=== PATIENT | male | born 2000 | race Caucasian/White ===

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

== ENCOUNTER 2019-02-25 09:11 | Inpatient (IN) ==
[2019-02-25] MEDS ORDERED: NITROGLYCERIN SL 0.4 MG/TAB TAB SL PRN (09:25)
[2019-02-25] MEDS ORDERED: ASPIRIN CHEW 324 MG PO STA (09:25)
[2019-02-25] MEDS ORDERED: ONDANSETRON INJ 2 MG/ML 2 ML VIAL IV STA (09:25)
[2019-02-25] MEDS ORDERED: SODIUM CHLORIDE 0.9% 1000ML 1,000 ML IV ONE (09:29)
[2019-02-25 09:42] LABS: Basophils # (auto) 0.01 K/uL (0-0.2); Basophils % (auto) 0.1 %; Eosinophils # (auto) 0.04 K/uL (0-0.5); Eosinophils % (auto) 0.3 %; Hematocrit (blood only) 44.3 % (42-52); Hemoglobin 16.3 g/dL (14.0-18.0); Immature Granulocytes # (auto) 0.03 K/uL (0.00-0.02); Immature Granulocytes % (auto) 0.2 %; Lymphocytes # (auto) 1.72 K/uL (1.2-3.4); Lymphocytes % (auto) 12.4 %; Mean Corpuscular Hemoglobin 29.7 pg (25-34); Mean Corpuscular Hgb Conc 36.8 g/dL (32-36); Mean Corpuscular Volume 80.8 fL (80-100); Mean Platelet Volume 8.9 fL (7.4-10.4); Monocytes # (auto) 1.59 K/uL (0.11-0.59); Monocytes % (auto) 11.5 %; Neutrophils # (auto) 10.48 K/uL (1.4-6.5); Neutrophils % (auto) 75.5 %; Platelet Count 169 K/uL (130-400); RDW Coefficient of Variation 12.6 % (11.5-14.5); RDW Standard Deviation 37.2 fL (36.4-46.3); Red Blood Count 5.48 M/uL (4.7-6.1); White Blood Count 13.87 K/uL (4.8-10.8)
[2019-02-25] MEDS ORDERED: MoRPHine SULFATE 10 MG/ML CARP/VIAL ONE (09:44)
[2019-02-25 09:45] LABS: iSTAT Ionized Calcium 1.06 mmol/l; iSTAT Potassium 3.7 mEq/L (3.3-5.0)
--- NOTE | 2019-02-25 09:51 | XRay Report ---
XR chest 1V portable CLINICAL HISTORY: 18 years-old Male presenting with Chest Pain. TECHNIQUE: Portable upright AP view of the chest was obtained. COMPARISON: None. FINDINGS: Cardiomediastinal silhouette normal. No focal opacity. No large effusion or pneumothorax. Osseous str uctures normal. Upper abdomen normal. IMPRESSION: 1. No acute cardiopulmonary disease. Electronically signed by: Simon Bello M.D. 02/25/2019 9:49 AM
[2019-02-25] MEDS ORDERED: MIDAZOLAM HCL 1 MG/ML 2ML VIAL ONE (09:52)
[2019-02-25] MEDS ORDERED: HEPARIN (PORCINE) 1000 UNIT/ML 10 ML (CATH LAB USE ONLY) ONE (09:52)
[2019-02-25] MEDS ORDERED: NiCARDipine HCL INJ 2.5 MG/ML 10 ML AMP ONE (09:52)
[2019-02-25] MEDS ORDERED: fentaNYL citrate 100 MCG/2 ML VIAL ONE (09:52)
[2019-02-25] MEDS ORDERED: NITROGLYCERIN/D5W 100MCG/ML 20ML SYR ONE (09:53)
[2019-02-25] MEDS ORDERED: MoRPHine SULFATE 2 MG/ML CARP IV PRN (09:58)
[2019-02-25] MEDS ORDERED: ASPIRIN 81 MG CHEW PO STA (09:58)
[2019-02-25 09:59] LABS: Albumin Level 3.7 gm/dl (3.4-5.0); BUN Creatinine Ratio 11.5 (10-20); Calcium 8.8 mg/dl (8.5-10.1); Est GFR (African American) 113.4; Est GFR (Non-African American) 97.9; Potassium 3.7 mmol/L (3.5-5.1)
[2019-02-25] MEDS ORDERED: SODIUM CHLORIDE 0.9% 1000ML 1,000 ML IV SCH ×2 (10:00→11:00)
[2019-02-25 10:07] LABS: Bilirubin,Total 0.9 mg/dl (0.2-1); Creatine Kinase MB 11.7 ng/ml (0.5-3.6); Globulin 3.6 gm/dl (2.5-4.0); Total Protein 7.3 gm/dl (6.4-8.2); Troponin I 2.81 ng/ml (0-0.045)
--- NOTE | 2019-02-25 10:07 | Pre Anesthesia Assessment ---
Date of Service February 25, 2019 Pre Sedation Assessment Vital Signs Temp Pulse Pulse Resp BP BP Pulse Ox 02/25/19 10:00 83 17 99/64 L 100 02/25/19 09:53 88 86 13 98/69 L 94 02/25/19 09:52 80 22 98/69 L 100 02/25/19 09:48 78 19 83/70 L 100 02/25/19 09:45 77 18 88/70 L 100 02/25/19 09:42 82 16 88/67 L 98 02/25/19 09:40 83 16 73/56 L 100 02/25/19 09:38 87 77 16 94/53 L 100 02/25/19 09:37 82 19 94/53 L 100 02/25/19 09:36 81 19 92/66 L 100 02/25/19 09:35 100 02/25/19 09:30 78 18 91/57 L 99 02/25/19 09:26 36.9 C 83 26 H 120/65 99 02/25/19 09:23 84 21 107/69 100 Notes The planned sedation has been discussed with the patient. Informed Consent was obtained. I have identified the patient, determined the appropriateness of sedation and have assessed the patient immediately prior to the procedure. All medicine(s) and interventions are by my order.
[2019-02-25] MEDS ORDERED: ONDANSETRON INJ 2 MG/ML 2 ML VIAL IV PRN (10:19)
[2019-02-25] MEDS ORDERED: ACETAMINOPHEN 325 MG TAB PO PRN (10:19)
--- NOTE | 2019-02-25 10:29 | History & Physical Report ---
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 Thacker performed cardiac cath Normal cardiac arteries - Follow am prp, cbc - CXR reviewed and clear (2) Alcohol abuse: - Drinking etoh since moving in on 02/15 - includes beer and hard liquor, unable to quantify because it differs every night but pt admits to drinking until getting severely intoxicated. Cessation encouraged. Also discussed preventing illness by not sharing drinks or food with others. - Discussed cessation of marijuana use - Denies other ilicit or IV drug use. - Continue MVI, folic acid and thiamine - Check urine drug tox screen Dispo: From home, likely to remain in the hospital x 1-2 days History of Present Illness Primary Care Provider: NO PCP This is a 18 yo M, currently attending [employer], without significant past medical history who presented with acute chest pain to the ER, was found to have abnormal EKG with diffuse ST wave changes and elevated troponin of 2.2 and was immediately taken to the cardiac warehouse general laborer. Pain is currently well controlled and he has no acute complaints. Pt notes he started feeling ill last Wednesday. He reports that this started with a sore throat which progressed to the point where he was having difficulty swallowing. He denies having a fever, cough, shortness of breath throughout. He sought out health services on campus Wednesday morning, where he was evaluated with a rapid strep swab which was negative. He was given ibuprofen and Tylenol and sent home. Patient had difficulty going to class on Wednesday due to not feeling well, yet participated in one class which he is required to attend. He continued to feel significantly ill yesterday. Last evening, patient went to bed early and woke up with a significant chest pain substernally radiating into his back. He had more pain with leaning forward. There were no alleviating factor s. He was also nauseous and vomited once this morning. He called an uber which brought him to the hospital. Of note the patient has consumed alcohol nearly daily since moving in on 02/15/19 to his dorm. He did not drink any alcohol on Wednesday or Wednesday. He also participates in smoking marijuana on a fairly routine basis, using a G-pen. The patient asked me "what is the healthiest way to smoke weed", and he was counseled on not smoking marijuana at all. Patient admits to smoking cigars intermittently, 1 every 2 months, however does not engage in routine tobacco cigarette use. He does not use any other illicit drugs. Allergies Allergy/AdvReac Type Severity Reaction Status Date / Time No Known Allergies Allergy Unverified 03/13/17 00:41 Home Medications Home Medications Medication Instructions Recorded Confirmed Type Multiple Vitamin (Multi Vitamin 1 tab PO DAILY #0 03/13/17 History Daily) Past Med/Surg History Medical History No pertinent past medical history Family History Other No pertinent family history in first degree relatives Social History Preferred Language: Lao Communication Ability: Effective Cable Installation Technician Required: No Beliefs That Will Affect Care: None Current Living Situation: Other Current Living Situation Comment: college student current occupational status: student Other Information That Helps Us Care for You: No Feels Safe at Home: Yes Safety Concerns: Feels Safe At This Time Smoking Status: Never smoker Do You Dip or Chew Tobacco: No ; Second Hand Exposure: No ; Tobacco Cessation Education Requested by Patient: No Hx Alcohol Use: Yes Alcohol type: beer Review of Systems Review of Systems: Constitutional: No fever, sweats or chills Eyes: No diplopia, no worsening or blurred vision ENT: normal hearing, no trouble swallowing Respiratory: No cough, sputum, dyspnea at rest or on exertion Cardiovascular: No chest pain, tightness or palpitations Abdomen: No pain, nausea, vomiting, diarrhea or constipation Musculoskeletal: No joint pain, calf pain, swelling Neurologic: No weakness, numbness/tingling, or balance problems Psychiatric: No anxiety or depression Skin: No rash or itch Physical Exam Physical Exam: General: awake, alert, no apparent distress Head: Normocephalic, atraumatic ENT: PERRL, EOMI, no pharyngeal exudate, mucous membranes moist Chest: Clear to auscultation, on room air, no adventitious breath sounds Cardiac: +tachycardic, reg rhythm, no murmur, no JVD, normal peripheral pulses, good capillary refill Abdominal: NABS x 4 quadrants, soft, nontender to palpation, no rebound, guarding or tenderness Extremities: + TR band in place R radial, otherwise normal inspection, no peripheral edema or erythema, calfs nontender to palpation Psych: Normal mood and affect Neuro: AAO x 3, strength intact bilaterally and related 5/5, no motor deficits, speech is clear, no peripheral sensory deficits Results & Data Vital Signs (Past 12 Hours) Vital Signs Temp Pulse Pulse Resp BP BP Pulse Ox 02/25/19 10:04 36.8 C 83 17 99/64 L 100 02/25/19 10:00 83 17 99/64 L 100 02/25/19 09:53 88 86 13 98/69 L 94 02/25/19 09:52 80 22 98/69 L 100 02/25/19 09:48 78 19 83/70 L 100 02/25/19 09:45 77 18 88/70 L 100 02/25/19 09:42 82 16 88/67 L 98 02/25/19 09:40 83 16 73/56 L 100 02/25/19 09:38 87 77 16 94/53 L 100 02/25/19 09:37 82 19 94/53 L 100 02/25/19 09:36 81 19 92/66 L 100 02/25/19 09:35 100 02/25/19 09:30 78 18 91/57 L 99 02/25/19 09:26 36.9 C 83 26 H 120/65 99 02/25/19 09:23 84 21 107/69 100 Diagnostic Findings XR chest 1V portable CLINICAL HISTORY: 18 years-old Male presenting with Chest Pain. TECHNIQUE: Portable upright AP view of the chest was obtained. COMPARISON: None. FINDINGS: Cardiomediastinal silhouette normal. No focal opacity. No large effusion or pneumothorax. Osseous structures normal. Upper abdomen normal. IMPRESSION: 1. No acute cardiopulmonary disease. Electronically signed by: Simon Bello M.D. 02/25/2019 9:49 AM Code Status & VTE Plan Code Status Full code Supervising Physician Co-Signing Physician Notes I agree with physical exam , treatment and plan . PG Care Time/CCT Total # of Minutes Spent Total Time Spent with Patient: Total time spent is greater than 50% in coordination of care (as documented) at patient's floor/unit and/or counseling patient:
--- NOTE | 2019-02-25 11:16 | Cardiac Catheterization ---
Cardiac Cath Procedure Full Procedure Date February 25, 2019 Pre-Procedure Diagnosis Pre-Procedure Diagnosis: STEMI AUC Score AUC Score: 9 Post-Procedure Diagnosis Post-Procedure Diagnosis: Normal Coronary Arteries Procedure(s) Performed Procedure(s) Performed: Coronary Angiography and LV Angiography Advertising Inserter Jermaine Thacker DO Estimated Blood Loss Estimated Blood Loss: None Summary of Findings Normal coronary arteries, mild LV systolic dysfunction, phylicia- pericarditis. Hemodynamics Rest Ao:: 100/60 Final Ao: 100/60 LV: 100/10 Recommendations Recommendations: Medical Therapy and/or Counseling (NSAID and colchicine, patient counselled to avoid alcohol and recreational drugs.) Radiation Exposure (mGy) Normal coronary arteries, mild LV systolic dysfunction, myopericarditis Contrast (mls) normal coronary arteries ACC Data: Systems Programmer Analyst Cardiac Status Chest pain, diffuse hyperacute ST-elevation without [place]-depression, positive Troponin, no clinical CHF, no rub in 18-yo no cocaine/methamphetamine, no FH, no overt risk factors for [place] CAD Presenation: STEMI Anginal Classification: CCS IV Heart Failure: No Cardiogenic Shock within 24 Hours: No Cardiac Arrest within 24 Hours: No Imaging Studies Past 6 Months: No Stress Studies Past 6 Months: No Cardiac CTA: No STEMI OR Non-STEMI Symptom Onset Date: 02/24/19 Symptom Onset Time: 08:00 Thrombolytics: No Coronary Anatomy Dominant: Left Left Main (% Stenosis): Normal LAD (% Stenosis): Normal D1 (% Stenosis): Normal Circumflex (% Stenosis): Normal OM1 (% Stenosis): Normal OM2 (% Stenosis): Normal L PL1 (% Stenosis): Normal L PL2 (% Stenosis): Normal RCA (% Stenosis): Normal R PDA (% Stenosis): Normal R PL1 (% Stenosis): Normal R PL2 (% Stenosis): Normal Left Ventricular Angiography EF (%): 45 Diagnostic Physicians Name: Jermaine Thacker DO Status: Emergency Closure Device Percutaneous Entry Location: Radial Closure Device: Radial Band Recommendations: Medical Therapy and/or Counseling (NSAID and colchicine, patient counselled to avoid alcohol and recreational drugs.) Supervising Physician Co-Signing Physician Damian thacker
--- NOTE | 2019-02-25 11:16 | Post Anesthesia Assessment ---
Date of Service February 25, 2019 Post Sedation Assessment Vital Signs Temp Pulse Pulse Resp BP BP Pulse Ox 02/25/19 10:04 36.8 C 83 17 99/64 L 100 02/25/19 10:00 83 17 99/64 L 100 02/25/19 09:53 88 86 13 98/69 L 94 02/25/19 09:52 80 22 98/69 L 100 02/25/19 09:48 78 19 83/70 L 100 02/25/19 09:45 77 18 88/70 L 100 02/25/19 09:42 82 16 88/67 L 98 02/25/19 09:40 83 16 73/56 L 100 02/25/19 09:38 87 77 16 94/53 L 100 02/25/19 09:37 82 19 94/53 L 100 02/25/19 09:36 81 19 92/66 L 100 02/25/19 09:35 100 02/25/19 09:30 78 18 91/57 L 99 02/25/19 09:26 36.9 C 83 26 H 120/65 99 02/25/19 09:23 84 21 107/69 100 Post Sedation Plan On clinical assessment, the patient appears to have tolerated the sedation without complications. Patient is recovering as anticipated. Patient will continue to be monitored by nursing and may be discharged when sedation discharge criteria are met per below protocol. Upon Completions of procedure and additional 15 minutes continue every 5 minute vital signs and the P.A.R. score; then discharge to a Phase I or Fast Track to Phase II per the following guidelines: * Discharge Patient to appropriate Phase II area if PAR is 8 or greater or return to pre- procedure baseline. The post - procedure orders will be as directed. * If PAR score is less than 8 or not return to pre-procedure baseline then patient will follow Phase I monitoring till PAR is reached for Phase II. The Phase I may be done in procedure room or may call to secure a Phase I area. * If naloxone or flumazenil are used for reversal, hold in Phase I for continued monitoring from when last reversal dose was given for a minimum of 60 minutes or longer pending the nurse and/or physician discretion of patient condition before discharge to Phase II. Please call the Sedation Physician to re-evaluate and complete post-note for discharge to Phase II area. Do NOT discharge from procedure sedation or Phase 1 until post- sedation evaluation note is complete by procedure /sedation MD Sedation Discharge Instructions to be given to the patient at discharge to home. Supervising Physician Co-Signing Physician Notes arronning
--- NOTE | 2019-02-25 11:17 | Cardiac Catheterization ---
Cardiac Cath Procedure Full Procedure Date February 25, 2019 Pre-Procedure Diagnosis Pre-Procedure Diagnosis: STEMI AUC Score AUC Score: 9 Post-Procedure Diagnosis Post-Procedure Diagnosis: Normal Coronary Arteries Procedure(s) Performed Procedure(s) Performed: Coronary Angiography and LV Angiography Vp Outcomes Jermaine Thacker DO Estimated Blood Loss Estimated Blood Loss: None Recommendations Recommendations: Medical Therapy and/or Counseling (NSAID and colchicine, patient counselled to avoid alcohol and recreational drugs.) ACC Data: Field Reporter Cardiac Status Clinical evaluation leading to the procedure Diagnostic Physicians Name: Jermaine Thacker DO Closure Device Recommendations: Medical Therapy and/or Counseling (NSAID and colchicine, patient counselled to avoid alcohol and recreational drugs.)
--- NOTE | 2019-02-25 11:48 | Cardiac Catheterization ---
Cardiac Cath Procedure Full Procedure Date February 25, 2019 Pre-Procedure Diagnosis Pre-Procedure Diagnosis: STEMI AUC Score AUC Score: 9 Post-Procedure Diagnosis Post-Procedure Diagnosis: Normal Coronary Arteries Procedure(s) Performed Procedure(s) Performed: Coronary Angiography and LV Angiography Superintendent Operating Jermaine Thacker DO Estimated Blood Loss Estimated Blood Loss: None Summary of Findings Normal coronary arteries, mild LV systolic dysfunction, phylicia- pericarditis. Hemodynamics Rest Ao:: 100/60 Final Ao: 100/60 LV: 100/10 Recommendations Recommendations: Medical Therapy and/or Counseling (NSAID and colchicine, patient counselled to avoid alcohol and recreational drugs.) ACC Data: Adult Education Professional Cardiac Status Clinical evaluation leading to the procedure CAD Presenation: STEMI Diagnostic Physicians Name: Jermaine Thacker DO Closure Device Recommendations: Medical Therapy and/or Counseling (NSAID and colchicine, patient counselled to avoid alcohol and recreational drugs.) Supervising Physician Co-Signing Physician Damian thacker
[2019-02-25] MEDS ORDERED: LORazepam 1 MG TAB PO PRN (12:22)
--- NOTE | 2019-02-25 12:26 | Operative Report ---
DATE OF OPERATION: 02/25/2019 INDICATION: Chest pain atypical of angina with a pleuritic component and a positional component in a 18-year-old male, onset 24-48 hours earlier, associated with hyperacute ST elevation without GA depression, positive troponin of 2 with no congestive heart failure in a 18-year-old with no history of tobacco abuse, who "smokes occasional weed," drinks alcohol, has no overt risk factors for coronary artery disease. PROCEDURE PERFORMED: Left heart cath, coronary cineangiography, left ventriculography, radiological interpretation and supervision. METHOD: Upon arrival in the [facility], the patient was prepped and draped in the usual sterile fashion and after local infiltration of 2% lidocaine, a 6-Malaysian sheath was placed in the right radial artery. Intra-arterial nicardipine, heparin and nitroglycerin were administered. The sheath was aspirated and flushed. A 5-Malaysian TIG 4.0 catheter was advanced over wire under fluoroscopic guidance to the central circulation where it was aspirated and flushed. After confirmation of adequate waveform, it was advanced into the left ventricle. Left ventricular end diastolic pressure was measured. The catheter was removed from left ventricle to the aorta under continuous pressure monitoring. Catheter was used to engage the origin of the left main. Cineangiograms of the left coronary artery obtained and reviewed. Catheter was used to engage the origin of the right coronary artery. Cineangiograms of the right coronary artery obtained and reviewed. Catheter was then used to exchange over wire for a 5-Malaysian angle tip pigtail which was used to cross the aortic valve in a retrograde fashion. Left ventriculography was performed using 36 mL of contrast dye over 3 seconds at less than 450 PSI. Catheter was removed from the left ventricle to the aorta and continuous pressure monitoring and removed from the body over wire. Sheath was aspirated and flushed. An external compression device was deployed over the right radial artery. The patient returned to his room in good condition. COMPLICATIONS: None. FINDINGS: Left main is normal. Left circumflex, circumflex marginal and posterolateral branches are free of significant disease. Left anterior descending artery and a large first diagonal branch are free of significant disease. There is a mid LAD intramyocardial segment with no systolic compression of the artery noted. The right coronary artery, the posterior descending artery, a large posterolateral branch with multiple sub branches are all free of significant disease. Left ventricular end diastolic pressure is normal. No significant aortic valve gradients demonstrated. Left ventriculography demonstrates top normal left ventricular size with mild LV systolic dysfunction, ejection fraction estimated at 45%. No discrete regional wall motion abnormality is identified. No apical ballooning is present. IMPRESSION AND PLAN: Normal coronary arteries, mild LV systolic dysfunction, presumed myopericarditis based upon EKG and symptoms. I attest to the content of the Intraoperative Record and any orders documented therein. Any exception s are noted below.
[2019-02-25] MEDS: IBUPROFEN 600 MG TAB PO SCH ×2 (12:28→19:29)
[2019-02-25] MEDS: COLCHICINE 0.6 MG TAB PO SCH ×2 (12:28→20:34)
--- NOTE | 2019-02-25 12:37 | Consultation Report ---
DATE OF CONSULTATION: 02/25/2019 CHIEF COMPLAINT: Chest pain. HISTORY OF PRESENT ILLNESS: This 18-year-old male reports onset 24-48 hours prior to presentation of anterior chest discomfort, diffuse, ill-defined, worse on inspiration and not necessarily worse on lying down or better on sitting up. Persistent over the course of hours, not associated with shortness of breath, associated with some degree of nausea, anorexia, no vomiting, no palpitations. The patient sought medical attention in the urgent care environment yesterday and was discharged. PAST MEDICAL HISTORY: Negative for hypertension, diabetes, hypercholesterolemia, atherosclerotic cardiovascular disease, prior myocardial infarction or stroke. PAST SURGICAL HISTORY: Unknown. OUTPATIENT MEDICATIONS: None. ALLERGIES: The patient reports no known drug allergies. FAMILY HISTORY: Negative for premature coronary artery disease, though "they are not very heart healthy." SOCIAL HISTORY: The patient does not smoke tobacco products. He smokes "weed" and drinks alcohol. Denies use of street drugs such as cocaine or methamphetamine. REVIEW SYSTEMS: The patient denies bleeding problems such as epistaxis, hemoptysis, hematemesis, hematuria, melena or hematochezia. He denies recent orthopnea or paroxysmal nocturnal dyspnea. Denies undue shortness of breath with limited physical exertion over the course of the last 48 hours. He notes recent cold, flu symptoms in the last 2 weeks. PHYSICAL EXAMINATION: VITAL SIGNS: Blood pressure is 140/70 in the Emergency Department, apical heart rate is 100 and regular, respiratory rate is 18-24. GENERAL: Intermittently, the patient is anxious, diaphoretic, in considerable chest pain on my arrival to the Emergency Department. HEENT: Mallampati score of 2 is noted. NECK: Jugular venous pressure is elevated with the patient supine. CARDIAC: Demonstrates a soft S4. No gallop or murmur is appreciated. No rub is elicited in supine or seated position leaning forward. LUNGS: Bilaterally clear to auscultation. Effort is good. No pleural pericardial and no pleural rub is noted. ABDOMEN: Soft, nontender with diminished bowel sounds present. EXTREMITIES: Well perfused. No pretibial edema. Normal right hand Wenceslao's test is noted. ELECTROCARDIOGRAM: Demonstrates sinus rhythm, normal axis, no Q waves with diffuse anterolateral ST elevation. No DE depression is noted. ST elevation is admittedly concave up and upsloping. LABORATORY VALUES: Include a troponin of 2.2 in the Emergency Department. Emergent cardiac catheterization demonstrates mild LV systolic dysfunction with normal coronary arteries, nonsignificant intramyocardial bridge of the LAD is noted. Chemistries, CBC including elevated white count with a neutrophilia are noted. IMPRESSION: Myocarditis, pericarditis, mild left ventricular systolic dysfunction. RECOMMENDATIONS: Colchicine 0.6 mg b.i.d. for 2 months, ibuprofen 600 mg b.i.d. for 7-10 days. GI protection with a proton pump inhibitor. ASAEL inhibitor for mild LV systolic dysfunction as blood pressure may tolerate, consider beta glenn if blood pressure and heart rate will tolerate tomorrow. Echocardiogram to evaluate for pericardial effusion. Catheterization findings, diagnosis, and plan for medical treatment are discussed with the patient and, at the direction of the patient, with the patient's father who is en route to the hospital.
[2019-02-25] MEDS: METOPROLOL TARTRATE 25 MG TAB PO SCH ×2 (12:56→20:34)
[2019-02-25] MEDS: PANTOprazole 40 MG TAB PO SCH (12:56)
[2019-02-25 19:28] LABS: Amphetamines+Metham, Urine Neg (Neg); Barbiturates, Urine Neg (Neg); Benzodiazepine, Urine Pos (Neg); Cocaine, Urine Neg (Neg); MDMA (Ecstacy), Urine Neg (Neg); Methadone, Urine Neg (Neg); Opiate, Urine Pos (Neg); Phencyclidine, Urine Neg (Neg)
[2019-02-25] MEDS ORDERED: ALUMINUM/MAGNESIUM SUSP 30 ML UDC PO PRN (21:35)
[2019-02-26] MEDS: IBUPROFEN 600 MG TAB PO SCH ×3 (03:39→19:41)
[2019-02-26 07:15] LABS: Hematocrit (blood only) 40.7 % (42-52); Hemoglobin 14.4 g/dL (14.0-18.0); Mean Corpuscular Hemoglobin 29.3 pg (25-34); Mean Corpuscular Hgb Conc 35.4 g/dL (32-36); Mean Corpuscular Volume 82.9 fL (80-100); Mean Platelet Volume 9.2 fL (7.4-10.4); Platelet Count 165 K/uL (130-400); RDW Standard Deviation 39.1 fL (36.4-46.3); Red Blood Count 4.91 M/uL (4.7-6.1); White Blood Count 8.66 K/uL (4.8-10.8)
[2019-02-26 07:26] LABS: INR 1.1 (0.9-1.1); Prothrombin Time 11.3 Seconds (9.0-12.0)
[2019-02-26 07:48] LABS: Albumin Level 2.8 gm/dl (3.4-5.0); BUN Creatinine Ratio 10.4 (10-20); Calcium 7.8 mg/dl (8.5-10.1); Est GFR (African American) 144.3; Est GFR (Non-African American) 124.5; Potassium 3.8 mmol/L (3.5-5.1)
[2019-02-26 07:52] LABS: Albumin Globulin Ratio 0.9 (0.9-2); Bilirubin,Total 0.4 mg/dl (0.2-1); Globulin 3.1 gm/dl (2.5-4.0); Total Protein 5.9 gm/dl (6.4-8.2)
[2019-02-26] MEDS: COLCHICINE 0.6 MG TAB PO SCH ×2 (08:43→20:31)
[2019-02-26] MEDS: THIAMINE HCL 100 MG TAB PO SCH (08:43)
[2019-02-26] MEDS: FOLIC ACID 400 MCG TAB PO SCH (08:43)
[2019-02-26] MEDS: CEROVITE ADV FORMULA TAB PO SCH (08:44)
[2019-02-26] MEDS: PANTOprazole 40 MG TAB PO SCH (08:45)
[2019-02-26] MEDS: LISINOPRIL 5 MG TAB PO SCH (10:26)
[2019-02-26] MEDS: METOPROLOL TARTRATE 25 MG TAB PO SCH ×2 (10:26→20:31)
--- NOTE | 2019-02-26 14:20 | Cardiology Progress Note ---
Date of Service February 26, 2019 Assessment & Plan (1) Acute myopericarditis: The patient was admitted with acute myopericarditis. Cardiac catheterization revealed normal coronary arteries and mild left ventricular dysfunction. LVEF on echocardiogram was reduced at 40%. Would continue ib uprofen and colchicine. (2) Elevated troponin: Troponin I level is still increasing. Would keep in hospital until the troponin begins to decrease. (3) Left ventricular dysfunction: Mild left ventricular dysfunction is related to his acute myopericarditis. Do not feel strongly that he requires metoprolol and lisinopril as this is likely from a viral etiology. Would suggest rechecking an echocardiogram in approximately 1 month. Subjective The patient is resting comfortably in bed without complaints of chest pain or dyspnea. Physical Exam Physical Exam: In general this is a well-developed well-nourished white male in no acute distress. HEENT exam is negative. Neck is supple with full carotid upstrokes. There are no carotid bruits. Jugular venous pressure is flat at 90. There is no thyromegaly. Cardiovascular exam reveals a regular rhythm with a normal S1 and S2. No S3, S4, or murmurs are noted. Lungs are clear without rales, rhonchi, or wheezes. Abdomen is soft and nontender without bruits. Extremities reveal intact radial artery and posterior tibial pulses bilaterally. There is no peripheral edema. Results & Data Vital Signs (Past 12 Hours) Vital Signs Temp Pulse Pulse Resp BP Pulse Ox 02/26/19 11:47 36.6 C 75 18 97/56 L 99 02/26/19 07:27 36.5 C 68 18 95/46 L 100 02/26/19 07:25 64 02/26/19 03:09 36.5 C 68 16 95/65 L 93 Laboratory Results Initial troponin level was 2.81 with follow-up values of 18.1, 20.3, and 25.3. Diagnostic Findings corset maker is benign. Echocardiogram noted mild left ventricular dysfunction with an ejection fraction of 40%. There is mild global hypokinesis. PG Care Time/CCT Total # of Minutes Spent Total Time Spent with Patient: Total time spent is greater than 50% in coordination of care (as documented) at patient's floor/unit and/or counseling patient:
--- NOTE | 2019-02-26 17:44 | Hospitalist Progress Note ---
Date of Service February 26, 2019 Assessment & Plan (1) Chest pain: Related to myopericarditis Improving (2) Alcohol abuse: Discussed risk of binge drinking particularly in the context of "holiday heart syndrome"discussed that myopericarditis is not in his case caused by the alcohol, but that in his recovery and any kind of excess alcohol could certainly worsen or stall improvement of his cardiomyopathy. He expressed good understanding. (3) Acute myopericarditis: Appears to be post viral, several cases in the area. Colchicine, ibuprofen, supportive care, trend troponins, follow rhythms. (4) Left ventricular dysfunction: Related to above. Consider continuing ASAEL inhibitor after discharge, follow closely. Anticipate total improvement. (5) DVT prophylaxis: Ambulation Subjective Generally feeling better. Chest pain improving. No other new complaints. Exp lained disease process to patient in detail, he expressed good understanding. Answered all questions from him and his father to the best my ability and to their satisfaction. No other new issues. Review of Systems Review of Systems: All systems reviewed & are unremarkable except as noted in HPI & below Physical Exam Physical Exam: In general he is awake alert pleasant no distress. HEENT normocephalic atraumatic mucous membranes moist. Breathing unlabored no accessory muscle use good effort. Skin shows no rashes no pallor or icterus. Neuro shows no focal deficits. Results & Data Vital Signs (Past 12 Hours) Vital Signs Temp Pulse Pulse Resp BP Pulse Ox 02/26/19 16:00 77 02/26/19 15:07 97.7 F 92 H 18 99/52 L 99 02/26/19 15:00 77 02/26/19 11:47 97.9 F 75 18 97/56 L 99 02/26/19 07:27 97.7 F 68 18 95/46 L 100 02/26/19 07:25 64 PG Care Time/CCT Total # of Minutes Spent Total Time Spent with Patient: Total time spent is greater than 50% in coordination of care (as documented) at patient's floor/unit and/or counseling patient: (1) Chest pain Chest pain type: unspecified Qualified Code(s): R07.9 - Chest pain, unspecified
[2019-02-27] MEDS: IBUPROFEN 600 MG TAB PO SCH ×2 (04:09→11:09)
[2019-02-27 05:39] LABS: INR 1.1 (0.9-1.1); Prothrombin Time 11.1 Seconds (9.0-12.0)
--- NOTE | 2019-02-27 06:21 | Emergency Department Note ---
Entered by Jermaine De La Cruz acting as a scribe for History of Present Illness General Chief complaint: Chest Pain Stated complaint: chest and back pain - fatigue Time Seen by Provider: 02/25/19 09:25 Source: patient History of Present Illness Provider complaint: Chest pain Onset (ago): hour(s) (This morning) Location: chest Radiation: back Pain Consistency: + constant Maximum Pain Intensity: 7 Current Pain Intensity: 7 Relieved By: + none Exacerbated By: + none Associated symptoms: + nausea/vomiting, + shortness of breath and + other (Positive sore throat) The patient is a 18 year old male who presents to the Emergency Room with complaints of constant left sided chest pain that started this morning. The patient rates the pain as a 7/10 and notes that it radiates to his back. The patient adds that he is somewhat short of breath and has been nauseous since waking up causing him to vomit once. The patient notes that nothing makes his pain better or worse, including taking deep breaths. The patient states that for the past 3 days he has not been feeling well with an upper respiratory infection and 2 days ago he developed a sore throat. For these symptoms he has been taking Ibuprofen, Tylenol, and OTC allergy medication. He adds that yesterday he went to urgent care for his symptoms and he states "they did nothing". The patient admits to drinking heavily all week, however he did not drink yesterday. The patient does smoke marijuana but denies any other drug use including cocaine and Adderall. The patient has no personal past medical history but he is unsure if he has any family medical history. Home Medications Home Medications Medication Instructions Recorded Confirmed Type Multiple Vitamin (Multi Vitamin 1 tab PO DAILY #0 03/13/17 History Daily) Allergies Allergy/AdvReac Type Severity Reaction Status Date / Time No Known Allergies Allergy Unverified 03/13/17 00:41 Past Med/Surg History Medical History No pertinent past medical history Family History Other No pertinent family history in first degree relatives Social History Preferred Language: Danish Communication Ability: Effective Business Area Director Required: No Beliefs That Will Affect Care: None Current Living Situation: Other Current Living Situation Comment: college student current occupational status: student Other Information That Helps Us Care for You: No Feels Safe at Home: Yes Safety Concerns: Feels Safe At This Time Smoking Status: Never smoker Do You Dip or Chew Tobacco: No ; Second Hand Exposure: No ; Tobacco Cessation Education Requested by Patient: No Hx Alcohol Use: Yes Alcohol type: beer Review of Systems See HPI for pertinent positives & negatives. and A total of 10 systems reviewed and were otherwise negative Physical Exam Vital Signs Vital Signs - 24 hr 02/25/19 09:23 02/25/19 09:26 02/25/19 09:30 Temperature 98.4 F Temperature Source Oral Sepsis Recent Fever Within 48 Hours No Sepsis New/Unexplained Change in Mental Status No Sepsis Action Taken by Nursing No Action Required Pulse Rate 84 83 78 Pulse Rate [Apical] Pulse Rate from SpO2 Sensor 82 85 79 Respiratory Rate 21 26 H 18 Respiratory Effort / Characteristics Respiratory Depth Respiratory Pattern Blood Pressure 107/69 120/65 91/57 L Blood Pressure [Left Arm] Blood Pressure Mean 81 83 68 Blood Pressure Mean [Left Arm] Blood Pressure Position [Left Arm] Pulse Oximetry 100 99 99 Oxygen Delivery Method Room Air Oxygen Flow Rate 02/25/19 09:35 02/25/19 09:36 02/25/19 09:37 Temperature Temperature Source Sepsis Recent Fever Within 48 Hours Sepsis New/Unexplained Change in Mental Status Sepsis Action Taken by Nursing Pulse Rate 81 82 Pulse Rate [Apical] Pulse Rate from SpO2 Sensor 77 83 Respiratory Rate 19 19 Respiratory Effort / Characteristics Respiratory Depth Respiratory Pattern Blood Pressure 92/66 L 94/53 L Blood Pressure [Left Arm] Blood Pressure Mean 74 66 Blood Pressure Mean [Left Arm] Blood Pressure Position [Left Arm] Pulse Oximetry 100 100 100 Oxygen Delivery Method Nasal Cannula Oxygen Flow Rate 2 02/25/19 09:38 02/25/19 09:40 02/25/19 09:42 Temperature Temperature Source Sepsis Recent Fever Within 48 Hours Sepsis New/Unexplained Change in Mental Status Sepsis Action Taken by Nursing Pulse Rate 87 83 82 Pulse Rate [Apical] 77 Pulse Rate from SpO2 Sensor 84 83 80 Respiratory Rate 16 16 16 Respiratory Effort / Characteristics Short of Breath Respiratory Depth Respiratory Pattern Blood Pressure 73/56 L 88/67 L Blood Pressure [Left Arm] 94/53 L Blood Pressure Mean 61 74 Blood Pressure Mean [Left Arm] 66 Blood Pressure Position [Left Arm] Lying Pulse Oximetry 100 100 98 Oxygen Delivery Method Nasal Cannula Oxygen Flow Rate 2 02/25/19 09:45 02/25/19 09:48 02/25/19 09:52 Temperature Temperature Source Sepsis Recent Fever Within 48 Hours Sepsis New/Unexplained Change in Mental Status Sepsis Action Taken by Nursing Pulse Rate 77 78 80 Pulse Rate [Apical] Pulse Rate from SpO2 Sensor 76 80 81 Respiratory Rate 18 19 22 Respiratory Effort / Characteristics Respiratory Depth Respiratory Pattern Blood Pressure 88/70 L 83/70 L 98/69 L Blood Pressure [Left Arm] Blood Pressure Mean 76 74 78 Blood Pressure Mean [Left Arm] Blood Pressure Position [Left Arm] Pulse Oximetry 100 100 100 Oxygen Delivery Method Oxygen Flow Rate 02/25/19 09:53 02/25/19 10:00 02/25/19 10:04 Temperature 98.2 F Temperature Source Oral Sepsis Recent Fever Within 48 Hours Sepsis New/Unexplained Change in Mental Status Sepsis Action Taken by Nursing Pulse Rate 88 83 83 Pulse Rate [Apical] 86 Pulse Rate from SpO2 Sensor 87 87 Respiratory Rate 13 17 17 Respiratory Effort / Characteristics Non-Labored Spontaneous Respiratory Depth Normal Respiratory Pattern Regular Blood Pressure 99/64 L 99/64 L Blood Pressure [Left Arm] 98/69 L Blood Pressure Mean 75 Blood Pressure Mean [Left Arm] 78 Blood Pressure Position [Left Arm] Lying Pulse Oximetry 94 100 100 Oxygen Delivery Method Nasal Cannula Nasal Cannula Oxygen Flow Rate 2 2 GENERAL: Awake, alert, well-appearing, in no distress HENT: Normocephalic, atraumatic. Oropharynx unremarkable. EYES: Normal conjunctiva. Sclera non-icteric. NECK: Supple. No nuchal rigidity. FROM. No masses. RESPIRATORY: Clear to auscultation. No wheezes. No rales. Normal respiratory effort. CARDIAC: Normal rate. Normal rhythm. No murmurs. No rubs. Extremities warm and well perfused. Pulses equal. No JVD. GI: Soft, non-distended. No tenderness to palpation. No rebound or guarding. No masses. RECTAL: Deferred. MUSCULOSKELETAL: Atraumatic. Chest examination reveals no tenderness. The back is symmetrical on inspection without obvious abnormality. There is no CVA tenderness to palpation. No joint edema. LOWER EXTREMITIES: Calves are equal size bilaterally and non-tender. No edema. No discoloration. NEURO: Normal sensorium. No sensory or motor deficits noted. Course 923: Past medical records reviewed. The patient was evaluated in room A04B, and a complete history and physical examination were performed. A heart alert was immediately called. 0940: I spoke to the patient's father to inform him of the situation regarding his son. 0949: I spoke to Dr. Kirstie Nunez at the patient's bedside. He is going to bring the patient over to the aquatic laborer. 0953: Upon reevaluation, the patient's pain is now a 3/10 after receiving morphine. 1013: I spoke to Kathrinkm Zaragoza [facility] PAC under Dr. Winslow [facility] Hospitalist about the patient's case. They are going to accept the patient for further evaluation. Consultations Consultation #1: I spoke to Dr. Kirstie Nunez at the patient's bedside. He is going to bring the patient over to the aquatic laborer. Time: 09:49 Consultation #2: I spoke to Kathrinmk Andrewlina [facility] PAC under Dr. Winslow [facility] Hospitalist about the patient's case. They are going to accept the patient for further evaluation. Time: 10:13 Administered Medications Al Hydrox/Mg Hydrox/Simethicone (Maalox) 30 ml PO Q6H PRN PRN Reason: Indigestion Stop: 03/27/19 21:34 Last Admin: 02/25/19 21:55 Dose: 30 ml Documented by: [id number] Colchicine (Colcrys) 0.6 mg PO BID REPLACED BY [facility] Stop: 03/27/19 10:59 Last Admin: 02/26/19 20:31 Dose: 0.6 mg Documented by: [id number] Admin: 02/26/19 08:43 Dose: 0.6 mg Documented by: [id number] Admin: 02/25/19 20:34 Dose: 0.6 mg Documented by: [id number] Admin: 02/25/19 12:28 Dose: 0.6 mg Documented by: [id number] Folic Acid (Folvite) 400 mcg PO QAM REPLACED BY [facility] Stop: 03/28/19 08:59 Last Admin: 02/26/19 08:43 Dose: 400 mcg Documented by: [id number] Ibuprofen (Motrin) 600 mg PO Q8H REPLACED BY [facility] Stop: 03/27/19 11:29 Last Admin: 02/27/19 04:09 Dose: 600 mg Documented by: [id number] Admin: 02/26/19 19:41 Dose: 600 mg Documented by: [id number] Admin: 02/26/19 12:08 Dose: 600 mg Documented by: [id number] Admin: 02/26/19 03:39 Dose: 600 mg Documented by: [id number] Admin: 02/25/19 19:29 Dose: 600 mg Documented by: [id number] Admin: 02/25/19 12:28 Dose: 600 mg Documented by: [id number] Lisinopril (Zestril) 5 mg PO QAM REPLACED BY [facility] Stop: 03/28/19 08:59 Last Admin: 02/26/19 10:26 Dose: Not Given Documented by: [id number] Metoprolol Tartrate (Lopressor) 25 mg PO BID REPLACED BY [facility] Stop: 03/27/19 12:15 Last Admin: 02/26/19 20:31 Dose: 25 mg Documented by: [id number] Admin: 02/26/19 10:26 Dose: Not Given Documented by: [id number] Admin: 02/25/19 20:34 Dose: 25 mg Documented by: [id number] Admin: 02/25/19 12:56 Dose: 25 mg Documented by: [id number] Multivitamins/Minerals (Multivitamin W/ Minerals Tab) 1 tab PO DAILY REPLACED BY [facility] Stop: 03/28/19 08:59 Last Admin: 02/26/19 08:44 Dose: 1 tab Documented by: [id number] Pantoprazole Sodium (Protonix) [facility] Stop: 03/27/19 11:44 Last Admin: 02/26/19 08:45 Dose: 40 mg Documented by: [id number] Admin: 02/25/19 12:56 Dose: 40 mg Documented by: [id number] Thiamine HCl (Vitamin B-1) 100 mg PO QAM REPLACED BY [facility] Stop: 03/28/19 08:59 Last Admin: 02/26/19 08:43 Dose: 100 mg Documented by: [id number] Discontinued Medications Aspirin (Aspirin) 324 mg PO NOW STA Stop: 02/25/19 09:26 Last Admin: 02/25/19 09:33 Dose: 324 mg Documented by: [id number] Fentanyl Citrate (Fentanyl Citrate) Confirm Administered Dose 100 mcg .ROUTE .STK-MED ONE Stop: 02/25/19 09:53 Last Increment: 02/25/19 10:44 Dose: 50 mcg Documented by: [id number] Heparin Sodium (Porcine) (Heparin Iv Bolus (Manager Business Continuity Use Only)) Confirm Administered Dose 10,000 units .ROUTE .STK-MED ONE Stop: 02/25/19 09:53 Last Admin: 02/25/19 10:45 Dose: 2,000 units Documented by: [id number] Heparin Sodium/Sodium Chloride (Heparin/Nss 1000 Unit/500ml Flush Bag) Confirm Administered Dose 3,000 units IV .STK-MED ONE Stop: 02/25/19 09:53 Last Admin: 02/25/19 10:45 Dose: 3,000 units Documented by: [id number] Sodium Chloride (Nss 1000ml) 1,000 mls @ 999 mls/hr IV .Q1H1M ONE Stop: 02/25/19 10:29 Last Infusion: 02/25/19 13:08 Dose: 0 mls/hr Documented by: [id number] Admin: 02/25/19 09:30 Dose: 999 mls/hr Documented by: [id number] Sodium Chloride (Nss 1000ml) 1,000 mls @ 100 mls/hr IV .Q10H POLO Stop: 02/25/19 16:59 Last Infusion: 02/25/19 21:06 Dose: 0 mls/hr Documented by: [id number] Admin: 02/25/19 11:00 Dose: 100 mls/hr Documented by: [id number] Midazolam HCl (Versed) Confirm Administered Dose 2 mg .ROUTE .STK-MED ONE Stop: 02/25/19 09:53 Last Admin: 02/25/19 10:45 Dose: 2 mg Documented by: [id number] Morphine Sulfate (Morphine Sulfate) Confirm Administered Dose 10 mg .ROUTE .STK- MED ONE Stop: 02/25/19 09:45 Last Admin: 02/25/19 09:47 Dose: 10 mg Documented by: [id number] Nicardipine HCl (Cardene) Confirm Administered Dose 25 mg .ROUTE .STK-MED ONE Stop: 02/25/19 09:53 Last Admin: 02/25/19 10:44 Dose: 25 mg Documented by: [id number] Nitroglycerin/Dextrose (Nitroglycerin/D5w 100 Mcg/Ml 20ml Syringe) Confirm Administered Dose 2,000 mcg .ROUTE .STK-MED ONE Stop: 02/25/19 09:54 Last Admin: 02/25/19 12:27 Dose: Not Given Documented by: [id number] Ondansetron HCl (Zofran) 4 mg IV NOW STA Stop: 02/25/19 09:26 Last Admin: 02/25/19 09:33 Dose: 4 mg Documented by: [id number] Medical Decision Making Differential Diagnosis Differential diagnoses includes but is not limited to acute coronary syndrome, myocardial infarction, pericarditis, pulmonary embolus, aortic dissection, pneumonia, pneumothorax, musculoskeletal, shingles, esophageal. Medical Records Attestation: I reviewed the patient's medical records. Home Medications Current Medication List: was personally reviewed by me Laboratory Data Attestation: I reviewed the patient's lab results. Result diagrams: 02/26/19 06:48 02/26/19 06:48 Lab Results 02/25/19 02/25/19 02/25/19 Range/Units 09:25 09:25 09:32 WBC 13.87 H (4.8-10.8) K/uL RBC 5.48 (4.7-6.1) M/uL Hgb 16.3 (14.0-18.0) g/dL POC Hgb (14.0-18.0) g/dl Hct 44.3 (42-52) % POC Hct (42-52) % MCV 80.8 (80-100) fL MCH 29.7 (25-34) pg MCHC 36.8 H (32-36) g/dL RDW Std Deviation 37.2 (36.4-46.3) fL RDW Coeff of Ra 12.6 (11.5-14.5) % Plt Count 169 (130-400) K/uL MPV 8.9 (7.4-10.4) fL Immature Gran % (Auto) 0.2 % Neut % (Auto) 75.5 % Lymph % (Auto) 12.4 % Forrest % (Auto) 11.5 % Eos % (Auto) 0.3 % Baso % (Auto) 0.1 % Immature Gran # (Auto) 0.03 H (0.00-0.02) K/uL Neut # (Auto) 10.48 H (1.4-6.5) K/uL Lymph # (Auto) 1.72 (1.2-3.4) K/uL Forrest # (Auto) 1.59 H (0.11-0.59) K/uL Eos # (Auto) 0.04 (0-0.5) K/uL Baso # (Auto) 0.01 (0-0.2) K/uL POC Sodium (135-144) mEq/L Sodium 137 (136-145) mmol/L POC Potassium (3.3-5.0) mEq/L Potassium 3.7 (3.5-5.1) mmol/L POC Chloride (101-112) mEq/L Chloride 103 (98-107) mmol/L Carbon Dioxide 25 (21-32) mmol/L POC Total CO2 (24-31) mEq/l Anion Gap 9.0 (3-11) POC Anion Gap (16-25) mmol/L POC BUN (7-18) mg/dl BUN 13 (7-18) mg/dl Creatinine 1.09 (0.6-1.4) mg/dl POC Creatinine mg/dl Est Cr Clr Drug Dosing 109.0 ml/min Est GFR ( Amer) 113.4 Est GFR (Non-Af Amer) 97.9 BUN/Creatinine Ratio 11.5 (10-20) Glucose 161 H (70-99) mg/dl POC Glucose (other) (70-99) mg/dl Calcium 8.8 (8.5-10.1) mg/dl POC Ioniz Calcium Kevin mmol/l Total Bilirubin 0.9 (0.2-1) mg/dl AST 25 (15-37) U/L ALT 23 (12-78) U/L Alkaline Phosphatase 89 (45-117) U/L Total Creatine Kinase 246 (39-308) U/L CK-MB (CK-2) 11.7 H (0.5-3.6) ng/ml CK/CKMB % Calc 4.8 H (0-3.0) POC Troponin I 2.27 H (0-0.045) ng/ml Troponin I 2.810 H* (0-0.045) ng/ml Total Protein 7.3 (6.4-8.2) gm/dl Albumin 3.7 (3.4-5.0) gm/dl Globulin 3.6 (2.5-4.0) gm/dl Albumin/Globulin Ratio 1.0 (0.9-2) Lipase 106 (73-393) U/L 02/25/19 Range/Units 09:33 WBC (4.8-10.8) K/uL RBC (4.7-6.1) M/uL Hgb (14.0-18.0) g/dL POC Hgb 16.0 (14.0-18.0) g/dl Hct (42-52) % POC Hct 47 (42-52) % MCV (80-100) fL MCH (25-34) pg MCHC (32-36) g/dL RDW Std Deviation (36.4-46.3) fL RDW Coeff of Ra (11.5-14.5) % Plt Count (130-400) K/uL MPV (7.4-10.4) fL Immature Gran % (Auto) % Neut % (Auto) % Lymph % (Auto) % Forrest % (Auto) % Eos % (Auto) % Baso % (Auto) % Immature Gran # (Auto) (0.00-0.02) K/uL Neut # (Auto) (1.4-6.5) K/uL Lymph # (Auto) (1.2-3.4) K/uL Forrest # (Auto) (0.11-0.59) K/uL Eos # (Auto) (0-0.5) K/uL Baso # (Auto) (0-0.2) K/uL POC Sodium 137 (135-144) mEq/L Sodium (136-145) mmol/L POC Potassium 3.7 (3.3-5.0) mEq/L Potassium (3.5-5.1) mmol/L POC Chloride 99 L (101-112) mEq/L Chloride (98-107) mmol/L Carbon Dioxide (21-32) mmol/L POC Total CO2 24 (24-31) mEq/l Anion Gap (3-11) POC Anion Gap 19.0 (16-25) mmol/L POC BUN 12 (7-18) mg/dl BUN (7-18) mg/dl Creatinine (0.6-1.4) mg/dl POC Creatinine 1.0 mg/dl Est Cr Clr Drug Dosing ml/min Est GFR ( Amer) Est GFR (Non-Af Amer) BUN/Creatinine Ratio (10-20) Glucose (70-99) mg/dl POC Glucose (other) 162 H (70-99) mg/dl Calcium (8.5-10.1) mg/dl POC Ioniz Calcium Kevin 1.06 mmol/l Total Bilirubin (0.2-1) mg/dl AST (15-37) U/L ALT (12-78) U/L Alkaline Phosphatase (45-117) U/L Total Creatine Kinase (39-308) U/L CK-MB (CK-2) (0.5-3.6) ng/ml CK/CKMB % Calc (0-3.0) POC Troponin I (0-0.045) ng/ml Troponin I (0-0.045) ng/ml Total Protein (6.4-8.2) gm/dl Albumin (3.4-5.0) gm/dl Globulin (2.5-4.0) gm/dl Albumin/Globulin Ratio (0.9-2) Lipase (73-393) U/L Imaging Data Radiologist's Impression: Radiology results as stated below per my review and the radiologist's interpretation: XR chest 1V portable CLINICAL HISTORY: 18 years-old Male presenting with Chest Pain. TECHNIQUE: Portable upright AP view of the chest was obtained. COMPARISON: None. FINDINGS: Cardiomediastinal silhouette normal. No focal opacity. No large effusion or pneumothorax. Osseous structures normal. Upper abdomen normal. IMPRESSION: 1. No acute cardiopulmonary disease. Electronically signed by: Simon Bello M.D. 02/25/2019 9:49 AM ECG Data Attestation: I personally reviewed and interpreted this ECG as follows: Indication: chest pain Rate (beats per minute): 97 Rhythm: normal sinus Findings: + ST depression (Reciprocal, anteriorly ) and + ST elevation (Inferior) Blood Pressure Blood Pressure Findings: Low blood pressure Blood Pressure Disposition: further management by hospitalist [facility] Narrative This is a 18-year-old male who presents emergency department with chest pain after 2 days of upper respiratory infection. The patient has also been heavily drinking and vomited this morning. The patient's EKG is abnormal because of this a heart alert was initiated. He was given aspirin here in the emergency department. The patient remained hypotensive therefore was given a normal saline bolus as well as morphine. His troponin was found to be grossly elevated. I did discuss the case with the interventionalist on-call who decided to bring the patient to the Manager Business Continuity. I also discussed the patient independently with both the patient's father and mother with the patient at the bedside. Family was in agreement with the treatment plan. Impression & Plan Chest pain, Elevated troponin Critical Care Time Critical Care Time: Yes Total Critical Care Time: 30 I have personally spent greater than 30 minutes of critical care time in the direct management of this patient. This includes bedside care, interpretation of diagnostic studies, and testing, discussion with consultants, patient, and family members, and other required patient management activities. This 30 minutes is in excess of all separately billable procedures. Discharge Plan Visit Data *Final* Discharge Date/Time: 02/25/19 10:06 Chief Complaint: Chest Pain Stated Complaint: chest and back pain - fatigue ED Provider: En Nieto Discharge Problem: Chest pain, Elevated troponin Patient Disposition: Admitted As Inpatient Discharge Instructions Interventions: ED Discharge Assessment Last Done: 02/25/19 10:04 Discharge Problem: Chest pain Qualifiers: Chest pain type: unspecified Qualified Code(s): R07.9 - Chest pain, unspecified The scribe's documentation has been prepared under my direction and personally reviewed by me in its entirety. I confirm that the note above accurately reflects all work, treatment, procedures, and medical decision making performed by me.
[2019-02-27 06:54] LABS: Estimated Average Glucose 103 mg/dl; Hemoglobin A1C 5.2 % (4.5-5.6)
[2019-02-27] MEDS: PANTOprazole 40 MG TAB PO SCH (08:53)
[2019-02-27] MEDS: CEROVITE ADV FORMULA TAB PO SCH (08:53)
[2019-02-27] MEDS: METOPROLOL TARTRATE 25 MG TAB PO SCH (08:53)
[2019-02-27] MEDS: COLCHICINE 0.6 MG TAB PO SCH (08:53)
[2019-02-27] MEDS: LISINOPRIL 5 MG TAB PO SCH (08:54)
[2019-02-27] MEDS: THIAMINE HCL 100 MG TAB PO SCH (08:54)
[2019-02-27] MEDS: FOLIC ACID 400 MCG TAB PO SCH (08:54)
--- NOTE | 2019-02-27 12:45 | Discharge Summary ---
Date of Service February 27, 2019 Admission HPI Per Admitting Provider This is a 18 yo M, currently attending [employer], without significant past medical history who presented with acute chest pain to the ER, was found to have abnormal EKG with diffuse ST wave changes and elevated troponin of 2.2 and was immediately taken to the cardiac crime lab technician. Pain is currently well controlled and he has no acute complaints. Pt notes he started feeling ill last Wednesday. He reports that this started with a sore throat which progressed to the point where he was having difficulty swallowing. He denies having a fever, cough, shortness of breath throughout. He sought out health services on campus Wednesday morning, where he was evaluated with a rapid strep swab which was negative. He was given ibuprofen and Tylenol and sent home. Patient had difficulty going to class on Wednesday due to not feeli ng well, yet participated in one class which he is required to attend. He continued to feel significantly ill yesterday. Last evening, patient went to bed early and woke up with a significant chest pain substernally radiating into his back. He had more pain with leaning forward. There were no alleviating factors. He was also nauseous and vomited once this morning. He called an uber which brought him to the hospital. Of note the patient has consumed alcohol nearly daily since moving in on 02/15/19 to his dorm. He did not drink any alcohol on Wednesday or Wednesday. He also participates in smoking marijuana on a fairly routine basis, using a G-pen. The patient asked me "what is the healthiest way to smoke weed", and he was counseled on not smoking marijuana at all. Patient admits to smoking cigars intermittently, 1 every 2 months, however does not engage in routine tobacco cigarette use. He does not use any other illicit drugs. Admission Exam Per Admitting Provider General: awake, alert, no apparent distress Head: Normocephalic, atraumatic ENT: PERRL, EOMI, no pharyngeal exudate, mucous membranes moist Chest: Clear to auscultation, on room air, no adventitious breath sounds Cardiac: +tachycardic, reg rhythm, no murmur, no JVD, normal peripheral pulses, good capillary refill Abdominal: NABS x 4 quadrants, soft, nontender to palpation, no rebound, guarding or tenderness Extremities: + TR band in place R radial, otherwise normal inspection, no peripheral edema or erythema, calfs nontender to palpation Psych: Normal mood and affect Neuro: AAO x 3, strength intact bilaterally and related 5/5, no motor deficits, speech is clear, no peripheral sensory deficits Principal Diagnosis Pericarditis and Myocarditis Discharge Exam Constitutional WD/WN, vitals as above Respiratory normal respiratory effort, lungs clear to auscultation Cardiovascular RRR, no murmur, no edema Heart Sounds: no cardiac rub Gastrointestinal (Abdomen) normal bowel sounds, soft, nontender, no hepatosplenomegaly Skin no rashes, warm and dry Psychiatric A+Ox3, euthymic affect Discharge Data Allergies Allergy/AdvReac Type Severity Reaction Status Date / Time No Known Allergies Allergy Unverified 03/13/17 00:41 Consultations 02/25/19 10:19 Consult Cardiology Routine ED Decision to Admit Routine 02/25/19 10:21 Consult Cardiology Routine Consult Case Management - Discharge Planning Routine 02/25/19 10:47 Consult Internal Medicine Routine 02/25/19 10:56 Consult Case Management - Discharge Planning Routine Procedures Performed Operation Date: 02/25/19 09:00 Actual Procedures p Cineradiography w/Routine Exam - Avel Urrutia MD s Cath, Left with Cors and Vent - Avel Urrutia MD Ordered Studies 02/25/19 09:57 CL Cath Imgs for PACS use only Stat Hospital Course (1) Acute myopericarditis: 18 yo M with history of alcohol and marijuana consumption who presented with chest pain, found to have myopericarditis. Acute myopericarditis - Initially troponins continued to elevate to max of 25.2, downtrending today to 11.3 and pt is without chest pain. - Has been treated inpatient with colchicine, lisinopril, ibuprofen which we will continue outpatient (colchicine three months, ibuprofen PRN pain, lisinopril until EF returns to normal on follow up Echo). Have discontinued metoprolol. - Will follow up with me in the clinic at [facility] within a week for hospital follow up. - Has prescription for Echo from Dr. Blankenship. Chest pain/Elevated troponin - See acute myopericarditis Alcohol use / marijuana use - Discussed that the use of alcohol and marijuana did not likely cause his illness given that the most common cause is viral, however both of these substances can make it worse and make slower his return to normal function. Have advised him to discontinue both for the foreseeable future, at least until his EF is better. Pt verbalized understanding. Left ventricular dysfunction -Have continued ASAEL lisinopril 5mg daily at this time, and will order BMP when I see him for outpatient follow up. Dispo: Home with self-care (2) Alcohol abuse: (3) Chest pain: (4) Elevated troponin: (5) Left ventricular dysfunction: Total Time Total Time Spent Total Time Spent (In Minutes): Less than 30 minutes Discharge Plan Discharge Items Patient Disposition: Home - Self-Care Reason For Visit: chest and back pain - fatigue Discharge Diagnosis: Inflammation of the Heart Discharge Goals: Decrease discomfort, Improve disease control, Learn about illness and Prevent disease Activity: Per 'Additional Instructions' section Non-emergency contact: Primary Care Provider Call non-emergency contact if: your symptoms worsen, your pain is worsening and your temperature is above 100.5 Follow-up/Referrals: Abril Bray DO [Resident] - PCP,RAFAEL [Primary Care Provider] - Diet: Regular Addtl Provider Instructions: You were admitted for chest and back pain and found to have pericarditis and myocarditis, inflammation of the heart and the tissue around the heart. This is likely due to a viral infection, but can be exacerbated by alcohol or drug use. We monitored your symptoms and treated you with ibuprofen and colchicine, medications used to reduce the inflammation around the heart. We checked to make sure you did not have a bacterial infection of your blood or heart, which you did not. Cardiology saw you and monitored your heart enzymes to make sure your heart as recovering from the injury, which it is. At this time Cardiology and your primary team feel comfortable with sending you home with specific instructions for the coming weeks until your follow up Cardiology appointment. 1) Please do not resume weight lifting until you feel comfortable running first. Weight lifting can make your inflammation around your heart worse if your heart is not ready for it. In general regarding exercise take it slow. 2) Please stop drinking alcohol for at least two weeks following discharge. You should also not smoke marijuana during that time as well. 3) You will go home today on three medications: Ibuprofen, Colchicine, and Lisinopril. - You will take Colchicine 0.6mg every 12 hours for the next three months. - You will take Lisinopril 5mg daily until your next Echocardiogram. At that time we will discuss stopping it. - You can take Ibuprofen as needed for pain. 4) I will have you scheduled an appointment with me (Dr. Bray) in the primary care clinic at [address] [place] [address] for next week. The phone number is [phone]. 5) At your follow up appointment we will schedule you for a repeat Echocardiogram for one month from now, and will schedule you for blood work to check your kidneys. If you have any worsening chest pain, shortness of breath, feeling like you are going to pass out, please seek medical attention. Prescriptions: New colchicine [Colcrys] 0.6 mg Tablet 0.6 mg PO BID Qty: 60 RF: 0 lisinopril 5 mg tablet 5 mg PO DAILY Qty: 30 RF: 0 ibuprofen 600 mg Tablet 600 mg PO Q8H Qty: 30 RF: 0 Continued Multiple Vitamin (Multi Vitamin Daily) 1 TAB tablet 1 tab PO DAILY Qty: 0 RF: 0 Stand-Alone Forms: [facility] Discharge Orders: Discharge Order (Routine); Ordered 02/27/19 Ordered By: Abril Bray Admission Data Admit Date/Time: 02/25/19 11:05 Attending Provider: Burke Pereira Admit Provider: Jermaine Thacker Primary Care Provider: PCP,NO Other Providers: Jermaine Thacker ; Gordy Johnson ; Maldonado Freeman ; Tung Blankenship ; Cameron Pickett ; Fly Betts ; Chris Flores Jr ; Dagoberto Ramírez ; Edie George ; Dominga Robert ; Avel Urrutia ; Avel Patel ; Lucho Dubon ; Ludmila Simon ; Jessica Nazario ; Mac Winslow Service: Telemetry Other Interventions: Discharge Summary Assessment (RN) Last Done: 02/27/19 12:32 DC Date/Time DO NOT enter until pt leaves facility: 02/27/19 13:38 Supervising Physician Co-Signing Physician Notes I personally examined the patient and verified all smart points of history and exam, discussed case, and agree with decision making with Dr Madrid. Feeling better. No pain. Extensive discussion of risks and benefits of m edications, most notably lisinopril for afterload reduction, given that his EF is somewhat low. Discussed the benefit being afterload reduction and less myocardial workload, discussed the risks being potential rise in creatinine (discussed absolute need to check a basic metabolic panel next week) and discussed small risk of a dry cough, discussed risk of feeling weak/lightheaded/dizzy, discussed that probably the biggest risk would be that since viral myocarditis usually gets better on its own it may not be necessary. We discussed that we can always check a follow-up echo in a month and then initiate the lisinopril, but after discussion patient, father, and myself all agreed that initiating treatment that can always be stopped if there are any side effects would be better than withholding treatment and wondering if he could not have had better improvement if his follow-up echo does not normalize. Vitals noted, in general he is awake and alert pleasant no distress. HEENT normal cephalic atraumatic mucous members moist. Breathing unlabored no accessory muscle use good effort. Skin shows no rashes no pallor or icterus. Viral myocarditis -Stable for home -Colchicine -ASAEL inhibitor as above. Basic metabolic panel next week. DC ASAEL inhibitor once his echocardiogram normalizes, or if he shows any side effects/lab abnormalities Alcohol abuse -Discussed with him yesterday, right now the plan is for abstinence which seems to be the safest approach Otherwise as above Resident Activity Tracking Resident Involvement: Resident Care Provided Care Provided: Adult Hospital Medicine
--- NOTE | 2019-02-27 13:27 | Cardiology Progress Note ---
Date of Service February 27, 2019 Assessment & Plan (1) Acute myopericarditis: Cardiac catheterization revealed normal coronary arteries and mild left ventricular dysfunction. LVEF on echocardiogram was reduced at 40%. Would continue ibuprofen and colchicine for least 1 month. (2) Elevated troponin: Troponin I level is decreasing. (3) Left ventricular dysfunction: Mild left ventricular dysfunction is related to his acute myopericarditis. Do not feel strongly that he requires metoprolol and lisinopril as this is likely from a viral etiology. Would recheck an echocardiogram in approximately 1 month. The patient is given a written prescription for a 2D echocardiogram. This will be performed at our office, or closer to his home depending on his insurance. Subjective The patient is resting comfortably in bed without complaints of chest pain or dyspnea. He is anxious for hospital discharge. We have discussed the need for repeat echocardiogram in approximately 1 month. This can be performed either locally, or in his hometown. Physical Exam Physical Exam: In general this is a well-developed well-nourished white male in no acute distress. HEENT exam is negative. Neck is supple with full carotid upstrokes. There are no carotid bruits. Jugular venous pressure is flat at 90. There is no thyromegaly. Cardiovascular exam reveals a regular rhythm with a normal S1 and S2. No S3, S4, or murmurs are noted. Lungs are clear without rales, rhonchi, or wheezes. Abdomen is soft and nontender without bruits. Extremities reveal intact radial artery and posterior tibial pulses bilaterally. There is no peripheral edema. Results & Data Vital Signs (Past 12 Hours) Vital Signs Temp Pulse Pulse Resp BP BP Pulse Ox 02/27/19 12:32 36.5 C 72 18 100/72 100/53 L 99 02/27/19 11:54 36.5 C 72 18 100/53 L 99 02/27/19 08:00 76 02/27/19 07:03 36.8 C 86 16 102/56 L 96 02/27/19 03:49 36.9 C 86 16 101/61 95 Laboratory Results Troponin I level down to 11.3 from a peak of 25.2 yesterday. PG Care Time/CCT Total # of Minutes Spent Total Time Spent with Patient: Total time spent is greater than 50% in coordination of care (as documented) at patient's floor/unit and/or counseling patient:
[2019-03-02 15:51] LABS: 7-Aminoclonaz, Confirm NEGATIVE NG/ML (CUTOFF=25); Codeine Urine NEGATIVE NG/ML (CUTOFF=50); Hydro-Alp Ur, GC/MS NEGATIVE NG/ML (CUTOFF=25); Hydrocodone Urine NEGATIVE NG/ML (CUTOFF=50); Hydromor Urine NEGATIVE NG/ML (CUTOFF=50); Hydroxyethylflurazepam, Conf NEGATIVE NG/ML (CUTOFF=50); Hydroxytriazolam NEGATIVE NG/ML (CUTOFF=50); Lorazepam, Ur GC/MS NEGATIVE NG/ML (CUTOFF=50); Morphine Urine 3380 NG/ML (CUTOFF=50); Nordiazepam, Confirm NEGATIVE NG/ML (CUTOFF=50); Norhydrocodone Conf Ur NEGATIVE NG/ML (CUTOFF=50); Noroxycodone Urine NEGATIVE NG/ML (CUTOFF=50); Oxazepam Ur, GC/MS NEGATIVE NG/ML (CUTOFF=50); Oxycodone Urine NEGATIVE NG/ML (CUTOFF=50); Oxymorph Urine NEGATIVE NG/ML (CUTOFF=50); Temazepam, Confirm NEGATIVE NG/ML (CUTOFF=50)
== END 2019-02-27 13:38 | disposition home or self-care (01) | DRG 287 ==
LOC: ED 09:11 → CC 10:05 → 2E 11:05 → SUATTDRO 11:05